=== PATIENT | female | born 1945 | race Caucasian/White ===

== ENCOUNTER → 2016-06-13 | Outpatient (REF) | payer MEDICARE, MEDICAID ==
[~2016-06-13] MED LIST: ALBU17IN INH; ALBU17IN2 INH; AMBI5TAB PO; ASPI81TA85 PO; ATIV1TAB7 PO; BACL5TA PO; CARV12.5 PO; COLA100C PO; CRES5TAB PO; FENO48TA2 PO; FENT12PA TOP; INSURSD SC; LASI80TA PO; LEVO125T3 PO; LOSA50TA20 PO; LYRI75CA PO; MIRT30TA3 PO; OYSCTAB3 PO; PARO40TA PO; PRED10TA PO
[2016-06-13 16:57] LABS: CALCIUM LEVEL 9.4 MG/DL (8.8-10.2); CREATININE FOR GFR 1.32 MG/DL (0.55-1.02); GLOMERULAR FILTRATION RATE 42.1 (>39); POTASSIUM SERUM 4.4 MEQ/L (3.5-5.1)
[2016-06-13 16:58] LABS: BASO # 0.2 K/mm3 (0.0-0.2); BASO % 1.9 % (0.0-1.0); EOS # 0.4 K/mm3 (0.0-0.50); EOS % 3.5 % (0.0-3.0); LARGE UNSTAINED CELL # 0.2 K/mm3 (0.0-0.4); LARGE UNSTAINED CELL % 1.7 % (0.0-4.0); LYMPH # 2.5 K/mm3 (1.5-4.5); LYMPH % 20.3 % (24.0-44.0); MEAN CORPUSCULAR HEMOGLOBIN 29.3 pg (27.0-33.0); MEAN CORPUSCULAR HGB CONC 32.2 g/dl (32.0-36.5); MEAN CORPUSCULAR VOLUME 91.1 fl (80.0-96.0); MONO # 0.7 K/mm3 (0.0-0.8); MONO % 6.4 % (0.0-5.0); NEUTROPHILS # 7.6 K/mm3 (1.8-7.7); NEUTROPHILS % 66.1 % (36.0-66.0); PLATELET COUNT, AUTOMATED 299 k/mm3 (150-450); RED CELL DISTRIBUTION WIDTH 14.2 % (11.5-14.5); WHITE BLOOD COUNT 11.6 K/mm3 (4.0-10.0)
[2016-06-13 18:06] LABS: ERYTHROCYTE SEDIMENTATION RATE 69 mm/hr (0-30)
== END ==
LOC: M SFHCPLAZ 12:39
PROVIDERS: ATTEND Internal Medicine Infectious Disease
DX: M86.672 Other chronic osteomyelitis, left ankle and foot (principal)
CPT/HCPCS: 36415; 80048; 85025; 85652; 86140; G0463

== ENCOUNTER 2016-06-24 09:01 | Outpatient (CLI) | payer MEDICARE, MEDICAID, OTHER ==
[~2016-06-24] VITALS: Ht 167.6 cm; Wt 147.3 kg
[2016-06-24] MEDS ORDERED: CEFTAROLINE FOSAMIL 600 MG in D5W MINI-BAG PLUS 50 ML IV ONE (09:15)
[2016-06-24] MEDS ORDERED: SODIUM CHLORIDE 0.9% INJ 10 ML SYR IV PRN (09:45)
[2016-06-24] MEDS ORDERED: SODIUM CHLORIDE 0.9% INJ 10 ML SYR IV SCH (14:00)
[2016-06-25] MEDS ORDERED: LYRI75CA PO (15:32)
[2016-06-25] MEDS ORDERED: ASPI81TA85 PO (15:32)
[2016-06-25] MEDS ORDERED: ALBU17IN2 INH (15:33)
[2016-06-25] MEDS ORDERED: ALBU17IN INH (15:34)
[2016-06-25] MEDS ORDERED: FENT12PA TOP (15:36)
[2016-06-25] MEDS ORDERED: COLA100C PO (15:36)
[2016-06-25] MEDS ORDERED: LEVO125T3 PO (15:36)
[2016-06-25] MEDS ORDERED: MIRT30TA3 PO (15:37)
[2016-06-25] MEDS ORDERED: AMBI5TAB PO (15:37)
[2016-06-25] MEDS ORDERED: PARO40TA PO (15:38)
[2016-06-25] MEDS ORDERED: OYSCTAB3 PO (15:39)
[2016-06-25] MEDS ORDERED: ATIV1TAB7 PO (15:39)
[2016-06-25] MEDS ORDERED: INSURSD SC (15:40)
[2016-06-25] MEDS ORDERED: BACL5TA PO (15:40)
[2016-06-25] MEDS ORDERED: LOSA50TA20 PO (15:41)
[2016-06-25] MEDS ORDERED: CARV12.5 PO (15:41)
[2016-06-25] MEDS ORDERED: CRES5TAB PO (15:42)
[2016-06-25] MEDS ORDERED: LASI80TA PO (15:42)
[2016-06-25] MEDS ORDERED: FENO48TA2 PO (15:43)
[2016-06-25] MEDS ORDERED: PRED10TA PO (15:44)
== END 2016-06-24 10:45 | disposition home or self-care (01) ==
LOC: M INFU 09:01
PROVIDERS: ATTEND Internal Medicine Infectious Disease
DX: M86.60 Other chronic osteomyelitis, unspecified site (principal); I10 Essential (primary) hypertension; A49.02 Methicillin resistant Staphylococcus aureus infection, unspecified site; E11.621 Type 2 diabetes mellitus with foot ulcer; L97.529 Non-pressure chronic ulcer of other part of left foot with unspecified severity; E78.2 Mixed hyperlipidemia; Z78.9 Other specified health status; Z88.8 Allergy status to other drugs, medicaments and biological substances; Z91.041 Radiographic dye allergy status; Z88.5 Allergy status to narcotic agent; Z88.1 Allergy status to other antibiotic agents; Z79.4 Long term (current) use of insulin; Z79.82 Long term (current) use of aspirin; Z79.899 Other long term (current) drug therapy

== ENCOUNTER → 2016-10-31 | Outpatient (REF) | payer MEDICARE, MEDICAID ==
[~2016-10-31] MED LIST changes: +BACL10TA5 PO; -BACL5TA PO; +BENA25CA4 PO; -COLA100C PO; +COLA100C5 PO; -LEVO125T3 PO; +LEVO125T4 PO; +MIRA3350 PO; +MULT1TAB10 PO; -PARO40TA PO; +PARO40TA2 PO; -PRED10TA PO; +PRED10TA2 PO
[2016-10-31 16:40] LABS: BASO # 0.1 K/mm3 (0.0-0.2); BASO % 0.9 % (0.0-1.0); EOS # 0.5 K/mm3 (0.0-0.50); EOS % 4.9 % (0.0-3.0); LARGE UNSTAINED CELL # 0.2 K/mm3 (0.0-0.4); LARGE UNSTAINED CELL % 2.2 % (0.0-4.0); LYMPH # 2.6 K/mm3 (1.5-4.5); LYMPH % 24.1 % (24.0-44.0); MEAN CORPUSCULAR HEMOGLOBIN 29.6 pg (27.0-33.0); MEAN CORPUSCULAR VOLUME 89.8 fl (80.0-96.0); MONO # 0.6 K/mm3 (0.0-0.8); NEUTROPHILS # 6.2 K/mm3 (1.8-7.7); PLATELET COUNT, AUTOMATED 190 k/mm3 (150-450); RED CELL DISTRIBUTION WIDTH 12.8 % (11.5-14.5)
[2016-10-31 17:27] LABS: CALCIUM LEVEL 8.7 MG/DL (8.8-10.2); CREATININE FOR GFR 1.75 MG/DL (0.55-1.02); GLOMERULAR FILTRATION RATE 30.3 (>39); POTASSIUM SERUM 4.1 MEQ/L (3.5-5.1)
== END ==
LOC: M SFHCPLAZ 10:47
PROVIDERS: ATTEND Internal Medicine Infectious Disease
DX: M86.672 Other chronic osteomyelitis, left ankle and foot (principal)
CPT/HCPCS: 36415; 80048; 85025; 86140; G0463

== ENCOUNTER 2017-04-01 11:27 | Outpatient (CLI) | payer MEDICARE, MEDICAID ==
[~2017-04-01] VITALS: Ht 167.6 cm; Wt 145.0 kg
[~2017-04-01 11:27] MED LIST changes: -BENA25CA4 PO; -MIRA3350 PO; -MULT1TAB10 PO
[2017-04-01] MEDS ORDERED: SODIUM CHLORIDE 0.9% INJ 10 ML SYR IV PRN (12:15)
[2017-04-01 12:31] LABS: BASO % 0.5 % (0.0-1.0); EOS # 0.4 10^3/uL (0.0-0.50); EOS % 5.1 % (0.0-3.0); IMMATURE GRANULOCYTE % 0.5 % (0-0); LYMPH # 2.4 10^3/uL (1.5-4.5); LYMPH % 27.7 % (24.0-44.0); MEAN CORPUSCULAR HEMOGLOBIN 28.9 pg (27.0-33.0); MEAN CORPUSCULAR VOLUME 90.2 fl (80.0-96.0); MONO # 0.8 10^3/uL (0.0-0.8); MONO % 8.9 % (0.0-5.0); NEUTROPHILS # 4.9 10^3/uL (1.8-7.7); NEUTROPHILS % 57.3 % (36.0-66.0); PLATELET COUNT, AUTOMATED 221 10^3/uL (150-450); RED CELL DISTRIBUTION WIDTH 12.5 % (11.5-14.5); WHITE BLOOD COUNT 8.6 10^3/uL (4.0-10.0)
[2017-04-01] MEDS ORDERED: ERTAPENEM SODIUM 1 GM in NS MINI-BAG PLUS 50 ML IV ONE (13:00)
[2017-04-01 13:13] LABS: CALCIUM LEVEL 8.8 MG/DL (8.8-10.2); CREATININE FOR GFR 1.28 MG/DL (0.55-1.02); ERYTHROCYTE SEDIMENTATION RATE 56 mm/hr (0-30); GLOMERULAR FILTRATION RATE 43.5 (>39); POTASSIUM SERUM 3.7 MEQ/L (3.5-5.1)
[2017-04-01] MEDS ORDERED: MULT1TAB10 PO (13:26)
[2017-04-01] MEDS ORDERED: MIRA3350 PO (13:27)
[2017-04-01] MEDS ORDERED: BENA25CA4 PO (13:27)
[2017-04-01] MEDS ORDERED: DAPTOmycin 1,000 MG in NS 50 ML IV ONE (14:00)
[2017-04-02] MEDS ORDERED: SODIUM CHLORIDE 0.9% INJ 10 ML SYR IV SCH (09:00)
== END 2017-04-01 14:15 | disposition home or self-care (01) ==
LOC: EEVIPCON 11:27 → M INFU 11:27
PROVIDERS: ATTEND Internal Medicine Infectious Disease
DX: M86.672 Other chronic osteomyelitis, left ankle and foot (principal); L03.317 Cellulitis of buttock; Z79.82 Long term (current) use of aspirin; Z79.4 Long term (current) use of insulin; Z88.5 Allergy status to narcotic agent; Z88.8 Allergy status to other drugs, medicaments and biological substances; Z88.1 Allergy status to other antibiotic agents; Z88.2 Allergy status to sulfonamides
CPT/HCPCS: 80048; 82550; 85025; 85652; 86140; 87070; 87077; 87186; 87205; 96365; 96366; G0463; J0878; J1335

== ENCOUNTER → 2017-05-01 | Outpatient (REF) | payer MEDICARE, MEDICAID ==
[~2017-05-01] MED LIST changes: +BENA25CA4 PO; +MIRA3350 PO; +MULT1TAB10 PO
[2017-05-01 16:18] LABS: BASO % 0.5 % (0.0-1.0); EOS # 0.3 10^3/uL (0.0-0.50); EOS % 3.7 % (0.0-3.0); IMMATURE GRANULOCYTE % 0.4 % (0-0); LYMPH # 1.8 10^3/uL (1.5-4.5); LYMPH % 21.7 % (24.0-44.0); MEAN CORPUSCULAR HGB CONC 31.8 g/dl (32.0-36.5); MEAN CORPUSCULAR VOLUME 91.2 fl (80.0-96.0); MONO # 0.7 10^3/uL (0.0-0.8); MONO % 8.1 % (0.0-5.0); NEUTROPHILS # 5.5 10^3/uL (1.8-7.7); NEUTROPHILS % 65.6 % (36.0-66.0); PLATELET COUNT, AUTOMATED 229 10^3/uL (150-450); RED CELL DISTRIBUTION WIDTH 12.7 % (11.5-14.5); WHITE BLOOD COUNT 8.3 10^3/uL (4.0-10.0)
[2017-05-01 16:41] LABS: ERYTHROCYTE SEDIMENTATION RATE 80 mm/hr (0-30)
[2017-05-01 16:58] LABS: ALBUMIN 3.1 GM/DL (3.2-5.2); ALBUMIN/GLOBULIN RATIO 0.76 (1.00-1.93); BILIRUBIN,TOTAL 0.3 MG/DL (0.2-1.0); CALCIUM LEVEL 8.6 MG/DL (8.8-10.2); CREATININE FOR GFR 1.23 MG/DL (0.55-1.02); GLOMERULAR FILTRATION RATE 45.6 (>39); POTASSIUM SERUM 3.9 MEQ/L (3.5-5.1); TOTAL PROTEIN 7.2 GM/DL (6.4-8.2)
== END ==
LOC: M SFHCPLAZ 12:07
PROVIDERS: ATTEND Internal Medicine Infectious Disease
DX: A49.02 Methicillin resistant Staphylococcus aureus infection, unspecified site (principal)
CPT/HCPCS: 36415; 80053; 82550; 85025; 85652; 86140; G0463

== ENCOUNTER → 2017-09-23 | Outpatient (CLI) | payer MEDICARE, MEDICAID ==
[~2017-09-23] MED LIST changes: -ALBU17IN INH; -ALBU17IN2 INH; -AMBI5TAB PO; -ASPI81TA85 PO; -ATIV1TAB7 PO; -BACL10TA5 PO; -BENA25CA4 PO; -CARV12.5 PO; -COLA100C5 PO; -CRES5TAB PO; -FENO48TA2 PO; -FENT12PA TOP; -INSURSD SC; +ISOVUE-300 61% 50ML VIAL (Q9967) As Ordered; -LASI80TA PO; -LEVO125T4 PO; +LIDOCAINE 2% MDV 20 ML VIAL As Ordered; -LOSA50TA20 PO; -LYRI75CA PO; -MIRA3350 PO; -MIRT30TA3 PO; -MULT1TAB10 PO; -OYSCTAB3 PO; -PARO40TA2 PO; -PRED10TA2 PO
== END | disposition home or self-care (01) ==
LOC: M IRPRO 13:15
DX: Z45.2 Encounter for adjustment and management of vascular access device (principal); A49.02 Methicillin resistant Staphylococcus aureus infection, unspecified site; L97.419 Non-pressure chronic ulcer of right heel and midfoot with unspecified severity; Z95.810 Presence of automatic (implantable) cardiac defibrillator
CPT/HCPCS: 36589

== ENCOUNTER → 2017-12-16 | Outpatient (REF) | payer MEDICARE, MEDICAID ==
[2017-12-16 13:32] LABS: BASO # 0.1 10^3/uL (0.0-0.2); BASO % 0.6 % (0.0-1.0); EOS # 0.4 10^3/uL (0.0-0.50); EOS % 3.6 % (0.0-3.0); HEMATOCRIT 43.6 % (36.0-47.0); HEMOGLOBIN 13.8 g/dl (12.0-15.5); IMMATURE GRANULOCYTE % 0.2 % (0-3.0); LYMPH % 19.8 % (24.0-44.0); MEAN CORPUSCULAR HEMOGLOBIN 30.3 pg (27.0-33.0); MEAN CORPUSCULAR HGB CONC 31.7 g/dl (32.0-36.5); MEAN CORPUSCULAR VOLUME 95.8 fl (80.0-96.0); MONO # 0.8 10^3/uL (0.0-0.8); NEUTROPHILS # 6.7 10^3/uL (1.8-7.7); NEUTROPHILS % 67.8 % (36.0-66.0); PLATELET COUNT, AUTOMATED 219 10^3/uL (150-450); RED BLOOD COUNT 4.55 10^6/uL (4.00-5.40); RED CELL DISTRIBUTION WIDTH 13.6 % (11.5-14.5); WHITE BLOOD COUNT 9.9 10^3/uL (4.0-10.0)
[2017-12-16 13:34] LABS: ANION GAP 8 MEQ/L (8-16); BLOOD UREA NITROGEN 30 MG/DL (7-18); CARBON DIOXIDE LEVEL 33 MEQ/L (21-32); CHLORIDE LEVEL 102 MEQ/L (98-107); CREATININE FOR GFR 1.37 MG/DL (0.55-1.30); GLOMERULAR FILTRATION RATE 40.1 (>39); GLUCOSE, FASTING 120 MG/DL (70-100); POTASSIUM SERUM 4.1 MEQ/L (3.5-5.1); SODIUM LEVEL 143 MEQ/L (136-145)
[2017-12-16 14:20] LABS: ERYTHROCYTE SEDIMENTATION RATE 29 mm/hr (0-30)
== END ==
LOC: M SFHCPLAZ 11:03
DX: A49.02 Methicillin resistant Staphylococcus aureus infection, unspecified site (principal)
CPT/HCPCS: 80048

== ENCOUNTER → 2018-03-24 | Outpatient (REF) | payer MEDICARE, MEDICAID | LOC: M SFHCPLAZ 13:19 | DX: Z22.322 Carrier or suspected carrier of Methicillin resistant Staphylococcus aureus (principal) | CPT/HCPCS: 87081 ==